=== PATIENT | male | born 1970 | race American Indian/Alaskan Native ===

== ENCOUNTER 2021-10-06 02:52 | Emergency (ER) | payer SELFPAY ==
[2021-10-06] MEDS ORDERED: SODIUM CHLORIDE 0.9% 1000 ML 1,000 ML IV ONE (04:38)
[2021-10-06 04:57] LABS: Basophils % (Auto) 0.7 % (0.0-1.8); Eosinophils # (Auto) 0.2 K/mm3 (0.0-0.4); Eosinophils % (Auto) 3.4 % (0.0-4.3); Hematocrit 44.6 % (35.5-45.6); Hemoglobin 14.6 gm/dl (11.8-15.2); Lymphocytes % (Auto) 16.2 % (13.4-35.0); Mean Corpuscular HGB Conc 33 % (32-34); Mean Corpuscular Volume 88 fl (84-94); Monocytes # (Auto) 0.6 K/mm3 (0.0-0.8); Platelet Count 245 K/mm3 (140-440); Red Blood Count 5.07 M/mm3 (3.65-5.03); Red Cell Distribution Width 13.4 % (13.2-15.2)
--- NOTE | 2021-10-06 05:11 | XRay Report ---
XR chest 1V ap INDICATION / CLINICAL INFORMATION: AMS. COMPARISON: None available. FINDINGS: SUPPORT DEVICES: None. HEART /PULMONARY VASCULATURE: No significant abnormality. LUNGS / PLEURA: No significant pulmonary or pleural abnormality. No pneumothorax. IMPRESSION: 1. No acute findings. Signer Name: Orlando Renee MD Signed: 10/06/2021 5:07 AM Workstation Name: [id number]
[2021-10-06 05:14] LABS: Alanine Aminotransferase 43 units/L (7-56); Albumin 4.4 g/dL (3.9-5); BUN/Creatinine Ratio 13; Blood Urea Nitrogen 16 mg/dL (9-20); Calcium 8.8 mg/dL (8.4-10.2); Hemolysis Index 7
[2021-10-06] MEDS ORDERED: ZIPRASIDONE MESYLATE 20 MG VIAL IM ONE ×2 (06:33→06:34)
[2021-10-06 07:00] LABS: Bilirubin,Urine NEG (Negative); Blood,Urine MOD (Negative); Color,Urine Straw (Yellow); Protein,Urine <15 mg/dL mg/dL (Negative); Urobilinogen,Urine < 2.0 mg/dL (<2.0)
[2021-10-06 07:07] LABS: Amphetamine Screen,Urine Negative; Benzodiazepines Screen,Urine Negative; Methadone Screen,Urine Negative; Opiate Screen,Urine Negative
[2021-10-06 07:20] LABS: Cannabinoid Screen,Urine Positive; Cocaine Screen,Urine Positive
--- NOTE | 2021-10-06 07:41 | Emergency Department Report ---
HPI - General Chief Complaint: Psych Time Seen by Provider: 10/06/21 04:18 - HPI HPI: 50-year-old male with no known history brought in by EMS with symptoms of acute psychosis saying that he has visual hallucinations of people trying to kill him after smoking and snorting cocaine earlier. Apparently has been awake for the past 9 days and knows that when he uses cocaine he hallucinates but did so anyways. He denied SI/HI to EMS. He apparently denied any chest pain or shortness of breath or other symptoms other than the hallucinations. This history was obtained from EMS. When I went to assess the patient, he was asleep and snoring in the bed. When I awakened him he arouses very briefly and then would immediately fall back asleep. This happened multiple times and I was never able to actually communicate with the patient as a result details of the HPI are limited due to the patient's current clinical condition. ED Past Medical Hx - Past Medical History Previous Medical History?: Yes Hx Hypertension: Yes - Surgical History Past Surgical History?: No - Social History Smoking Status: Current Every Day Smoker Substance Use Type: Cocaine - Medications Home Medications: Home Medications Medication Instructions Recorded Confirmed Last Taken Type No Known Home Medications [No 10/06/21 10/06/21 Unknown History Reported Home Medications] ED Review of Systems ROS: Stated complaint: HALLUCINATIONS Other details as noted in HPI Comment: Unobtainable due to pts medical conditions Physical Exam - Physical Exam Vital Signs: Vital Signs 10/06/21 10/06/21 10/06/21 02:55 04:37 05:00 Temperature 98.2 F Pulse Rate 94 H 74 Respiratory 18 22 19 Rate Blood Pressure 184/102 Blood Pressure 156/102 [Right] O2 Sat by Pulse 96 92 90 Oximetry Physical Exam: GENERAL: Male patient who appears older than stated age. Disheveled. Extremely somnolent and difficult to arouse. Patient arouses with very loud voice or sternal rub awakens and then falls back to sleep. HEAD: Normocephalic. No obvious signs of trauma. ENT: Moist mucous membranes. EYES: Pupils are equal round and reactive to light bilaterally NECK: Supple. Trachea is midline. LUNGS: Snoring respirations during sleep. Equal chest rise bilaterally. Clear to auscultation bilaterally. CARDIOVASCULAR: Regular rate and rhythm. No murmurs or rubs. VASCULAR: Cap refill < 2 seconds. 1+ pitting edema bilaterally. ABDOMEN: Abdomen is soft and nondistended. There is no significant tenderness, guarding or rebound. SKIN: Skin is warm and dry NEURO: Patient is extremely somnolent and arouses but then immediately falls back to sleep. For the brief period that he awakens each time he mumbles incoherently about people trying to maria luisa him. Unable to perform full neurologic exam at this time but patient is seen moving all 4 extremities volitionally. MUSCULOSKELETAL: No obvious deformities. ED Course Vital Signs 10/06/21 10/06/21 10/06/21 02:55 04:37 05:00 Temperature 98.2 F Pulse Rate 94 H 74 Respiratory 18 22 19 Rate Blood Pressure 184/102 Blood Pressure 156/102 [Right] O2 Sat by Pulse 96 92 90 Oximetry ED Medical Decision Making - Lab Data Result diagrams: 10/06/21 04:38 10/06/21 04:38 Labs 10/06/21 10/06/21 10/06/21 04:38 04:38 04:38 WBC 6.4 RBC 5.07 H Hgb 14.6 Hct 44.6 MCV 88 MCH 29 MCHC 33 RDW 13.4 Plt Count 245 Lymph % (Auto) 16.2 [place] % (Auto) 9.0 H Eos % (Auto) 3.4 Baso % (Auto) 0.7 Lymph # (Auto) 1.0 L [place] # (Auto) 0.6 Eos # (Auto) 0.2 Baso # (Auto) 0.0 Seg Neutrophils % 70.7 H Seg Neutrophils # 4.5 Sodium 140 Potassium 3.6 Chloride 100.3 Carbon Dioxide 26 Anion Gap 17 BUN 16 Creatinine 1.2 Estimated GFR > 60 BUN/Creatinine Ratio 13 Glucose 101 H Calcium 8.8 Total Bilirubin 0.70 AST 57 H ALT 43 Alkaline Phosphatase 48 Ammonia Troponin T NT-Pro-B Natriuret Pep Total Protein 7.5 Albumin 4.4 Albumin/Globulin Ratio 1.4 Urine Color Urine Turbidity Urine pH Ur Specific [place] Urine Protein Urine Glucose (UA) Urine Ketones Urine Blood Urine Nitrite Urine Bilirubin Urine Urobilinogen Ur Leukocyte Esterase Urine WBC (Auto) Urine RBC (Auto) Salicylates < 0.3 L Urine Opiates Screen Urine Methadone Screen Acetaminophen Ur Barbiturates Screen Ur Phencyclidine Scrn Ur Amphetamines Screen U Benzodiazepines Scrn Urine Cocaine Screen U Marijuana (THC) Screen Drugs of Abuse Note Plasma/Serum Alcohol 10/06/21 10/06/21 10/06/21 04:38 04:38 04:38 WBC RBC Hgb Hct MCV MCH MCHC RDW Plt Count Lymph % (Auto) [place] % (Auto) Eos % (Auto) Baso % (Auto) Lymph # (Auto) [place] # (Auto) Eos # (Auto) Baso # (Auto) Seg Neutrophils % Seg Neutrophils # Sodium Potassium Chloride Carbon Dioxide Anion Gap BUN Creatinine Estimated GFR BUN/Creatinine Ratio Glucose Calcium Total Bilirubin AST ALT Alkaline Phosphatase Ammonia Troponin T < 0.010 NT-Pro-B Natriuret Pep 68.18 Total Protein Albumin Albumin/Globulin Ratio Urine Color Urine Turbidity Urine pH Ur Specific [place] Urine Protein Urine Glucose (UA) Urine Ketones Urine Blood Urine Nitrite Urine Bilirubin Urine Urobilinogen Ur Leukocyte Esterase Urine WBC (Auto) Urine RBC (Auto) Salicylates Urine Opiates Screen Urine Methadone Screen Acetaminophen 5.0 L Ur Barbiturates Screen Ur Phencyclidine Scrn Ur Amphetamines Screen U Benzodiazepines Scrn Urine Cocaine Screen U Marijuana (THC) Screen Drugs of Abuse Note Plasma/Serum Alcohol < 0.01 10/06/21 10/06/21 10/06/21 04:59 06:44 06:44 WBC RBC Hgb Hct MCV MCH MCHC RDW Plt Count Lymph % (Auto) [place] % (Auto) Eos % (Auto) Baso % (Auto) Lymph # (Auto) [place] # (Auto) Eos # (Auto) Baso # (Auto) Seg Neutrophils % Seg Neutrophils # Sodium Potassium Chloride Carbon Dioxide Anion Gap BUN Creatinine Estimated GFR BUN/Creatinine Ratio Glucose Calcium Total Bilirubin AST ALT Alkaline Phosphatase Ammonia 36.0 Troponin T NT-Pro-B Natriuret Pep Total Protein Albumin Albumin/Globulin Ratio Urine Color Straw Urine Turbidity Clear Urine pH 6.0 Ur Specific [place] 1.009 Urine Protein <15 mg/dl Urine Glucose (UA) Neg Urine Ketones 20 Urine Blood Mod Urine Nitrite Neg Urine Bilirubin Neg Urine Urobilinogen < 2.0 Ur Leukocyte Esterase Neg Urine WBC (Auto) 1.0 Urine RBC (Auto) 1.0 Salicylates Urine Opiates Screen Negative Urine Methadone Screen Negative Acetaminophen Ur Barbiturates Screen Negative Ur Phencyclidine Scrn Negative Ur Amphetamines Screen Negative U Benzodiazepines Scrn Negative Urine Cocaine Screen Positive U Marijuana (THC) Screen Positive Drugs of Abuse Note Disclamer Plasma/Serum Alcohol - Radiology Data Radiology results: report reviewed - Medical Decision Making 50-year-old male who according to the EMS report reports staying up for the past 9 days and now reports visual hallucinations of people trying to kill him after using cocaine. He apparently denied SI/HI. He then was put in the hospital room where he fell asleep. When I assessed the patient he is extremely somnolent but arouses to very loud voice or sternal rub. He awakens very briefly mumbles about being chased and people trying to hurt him and then falls immediately back to sleep. This limits my ability to fully assess the patient. However, based on the history obtained by EMS which the patient admitted to staying up for the past 9 days and using cocaine, his sleepiness is consistent with that story. He is also mumbling about people trying to hurt him which is consistent with psychosis. Although the patient admits to using cocaine today, I am unable to determine whether the patient has been using cocaine and this is the reason why he has been staying up for the past 9 days or whether this is simply part of his cassidy/psychosis. For this reason I have signed a 1013 order and will send a full set of medical clearance labs. In addition given the reported cocaine use I have ordered an EKG and troponin as well as chest x-ray. Given the limited examination I have also ordered CT of the head to assess for evidence of intracranial bleeding versus mass versus edema versus other abnormality to explain the patient's presentation. Labs have resulted and reveal no significant leukocytosis or anemia. Creatinine is within normal range and there are no significant electrolyte abnormalities. Troponin and BNP are negative. Urinalysis is within normal limits. UDS is positive for cocaine and marijuana. Chest x-ray reveals no acute abnormalities At 6:35 AM, the patient suddenly awoke and became agitated, stumbling outside of his room into the hallway and holding his bag of IV fluids which is running into his arm. He is mumbling saying that he wants to leave. I immediately had security called and asked that the patient be given 20 mg of IM Geodon for chemical restraint. The patient was brought back to the mental health unit but I was told by the patient's nurse Shayla that security refused to assist with restraining the patient for Geodon to be given and therefore the medication was never given. Due to severe staffing shortage, EKG was never performed. I asked multiple times for the EKG and due to care being provided to other critical patients it was never done. CT of the head is still pending and will be followed up by the oncoming doctor, Dr. Ramos Critical care attestation.: If time is entered above; I have spent that time in minutes in the direct care of this critically ill patient, excluding procedure time. ED Disposition Clinical Impression: Psychosis, Cocaine use Disposition: HOME / SELF CARE / HOMELESS Condition: Stable Additional Instructions: Professional and Agency Contacts To help Resolve Crises (06/03) [place] Crisis Line: Suicide Prevention Line: Crisis Text Line: Text START to 850093 Emergency: 911 Outpatient COMMUNITY Behavioral Health Resources: DARIELA: [facility] [address] [place], [place] [address] [facility] [address] [place] [address] Monday thru Monday - 8am - 5pm Call to schedule an assessment for mental health and substance abuse programs [facility] Address: [address] [place] [address] Monday thru Monday- 7am-2pm an emergency, please contact the following numbers: [place] Crisis and Access Line: Number: Crisis Text Line: (Text START) Number: 569293 Suicide Prevention Line: Number: Emergency Number: 911 SUBSTANCE ABUSE PROGRAMS: Sober Living [facility]ique: Location: [place], [place] [facility] Address: [address] [place] [address] [facility] Recovery: Address: [address] [place] [address] [facility] Adult Rehabilitation: Address: [address] [place] [address] [facility] Community: Address: [address] [place] [address] [facility] Address: [address] , [place] [address]. [facility] Address: [address], [place] [address] Monday thru Monday: 8:30AM-5PM Referrals: PRIMARY CAREMD [Primary Care Provider] - 3-5 Days
--- NOTE | 2021-10-06 08:26 | Cat Scan Report ---
CT HEAD WITHOUT CONTRAST INDICATION / CLINICAL INFORMATION: Altered Mental Status / Substance abuse. TECHNIQUE: Axial imaging performed from the skull apex through the skull base without the use of cont rast. Sagittal and coronal reformatted images. All CT scans at this location are performed using CT dose reduction for ALARA by means of automated exposure control. COMPARISON: None available. FINDINGS: CEREBRAL PARENCHYMA: No significant abnormality. No acute territorial infarct. HEMORRHAGE: None. EXTRA-AXIAL SPACES: Normal in size and morphology for the patient's age. VENTRICULAR SYSTEM: Normal in size and morphology for the patient's age. MIDLINE SHIFT OR HERNIATION: None. CEREBELLUM / BRAINSTEM: No significant abnormality. CALVARIUM: No significant abnormality. ORBITS: Normal as visualized. PARANASAL SINUSES / MASTOID AIR CELLS: Normal as visualized. SOFT TISSUES of HEAD: No significant abnormality. ADDITIONAL FINDINGS: None. IMPRESSION: No acute intracranial abnormality. Cranial CT scan within normal limits. Signer Name: Noe Spencer Jr, MD Signed: 10/06/2021 8:22 AM Workstation Name: [id number]
--- NOTE | 2021-10-06 11:11 | Consultation ---
History of Present Illness - Reason for Consult Consult date: 10/06/21 Reason for consult: Psychosis - History of Present Psychiatric Illness ED Note:50-year-old male with no known history brought in by EMS with symptoms of acute psychosis saying that he has visual hallucinations of people trying to kill him after smoking and snorting cocaine earlier. Apparently has been awake for the past 9 days and knows that when he uses cocaine he hallucinates but did so anyways. He denied SI/HI to EMS. He apparently denied any chest pain or shortness of breath or other symptoms other than the hallucinations. This history was obtained from EMS. The patient was seen this morning. He is drowsy and unable to participate in assessment. Per nurse, patient recently received Geodon IM. for agitation PAST PSYCHIATRIC HISTORY: unable to obtain PAST MEDICAL HISTORY: None reported Family Psychiatric History None reported SOCIAL HISTORY Unable to obtain ROS: Unable to obtain MENTAL STATUS EXAMINATION Unable to obtain Assessment and Plan (1) Psychosis Treatment Plan 1013 Risks, benefits and alternatives of medications discussed with the patient, questions answered and consent obtained from patient. PSYCHOTHERAPY: Supportive psychotherapy provided MEDICAL: Per primary team DELIRIUM PRECAUTIONS: Please re-orient patient frequently, keep lights on during the day, and minimize benzodiazepines and opiates as these medications could worsen patient's confusion. ASSISTANT MANAGER OF OPERATIONS: per primary DISPOSITION: Recommend acute inpatient psychiatric hospitalization Will follow. Thank you for the consult. Please contact with any questions and/or concerns. Case staffed with Dr. Cao Medications and Allergies Allergies Allergy/AdvReac Type Severity Reaction Status Date / Time No Known Allergies Allergy Unverified 10/06/21 02:56 Home Medications Medication Instructions Recorded Confirmed Last Taken Type No Known Home Medications [No 10/06/21 10/06/21 Unknown History Reported Home Medications] Mental Status Exam - Vital signs Last Vital Signs Temp 98.2 F 10/06/21 02:55 Pulse 74 10/06/21 05:00 Resp 19 10/06/21 05:00 BP 184/102 10/06/21 05:00 Pulse Ox 99 10/06/21 08:29 Results Result Diagrams: 10/06/21 04:38 10/06/21 04:38 Abnormal lab results 10/06/21 10/06/21 10/06/21 Range/Units 04:38 04:38 04:38 RBC 5.07 H (3.65-5.03) M/mm3 [place] % (Auto) 9.0 H (0.0-7.3) % Lymph # (Auto) 1.0 L (1.2-5.4) K/mm3 Seg Neutrophils % 70.7 H (40.0-70.0) % Glucose 101 H (75-100) mg/dL AST 57 H (5-40) units/L Salicylates < 0.3 L (2.8-20.0) mg/dL Acetaminophen (10.0-30.0) ug/mL 10/06/21 Range/Units 04:38 RBC (3.65-5.03) M/mm3 [place] % (Auto) (0.0-7.3) % Lymph # (Auto) (1.2-5.4) K/mm3 Seg Neutrophils % (40.0-70.0) % Glucose (75-100) mg/dL AST (5-40) units/L Salicylates (2.8-20.0) mg/dL Acetaminophen 5.0 L (10.0-30.0) ug/mL All other labs normal.
--- NOTE | 2021-10-06 11:48 | Electrocardiograph Report ---
[facility] Test Date: 2021-10-06 Test Time: 04:45:51 Pat Name: AWILDA REDDING Department: Room: Gender: M Rn Cardiac Rehab: AIMEE Garcia : 1970 Requested By: IDALMIS GARCIA Order Number: [id number] Reading MD: Chinedu Lopez Measurements Intervals [place] Rate: 71 P: 64 SD: 128 QRS: 65 QRSD: 89 T: 36 QT: 401 QTc: 436 Interpretive Statements Sinus rhythm Atrial premature complex No previous ECG available for comparison Electronically Signed On 10-06-2021 10:52:19 EST by Chinedu Lopez
--- NOTE | 2021-10-06 13:01 | Emergency Department Report ---
Blank Doc - Documentation Documentation: 50-year-old male currently on 1013 awaiting. UDS positive for cocaine and mar ijuana. Patient was refuses Covid test
[2021-10-07 09:18] VITALS: BP 168/82
--- NOTE | 2021-10-07 10:37 | Consultation ---
History of Present Illness - Reason for Consult Consult date: 10/07/21 Reason for consult: Mental health evaluation - History of Present Psychiatric Illness The patient is a 50 year old male with history of cocaine abuse. The patient was seen this morning. He reports feeling better stating that his ready to go home. He denies any current suicidal thoughts and denies hallucinations. PAST PSYCHIATRIC HISTORY: unable to obtain PAST MEDICAL HISTORY: None reported Family Psychiatric History None reported SOCIAL HISTORY Unable to obtain ROS: Unable to obtain MENTAL STATUS EXAMINATION Unable to obtain Assessment and Plan (1) Psychosis Treatment Plan [id number] Risks, benefits and alternatives of medications discussed with the patient, questions answered and consent obtained from patient. PSYCHOTHERAPY: Supportive psychotherapy provided MEDICAL: Per primary team DELIRIUM PRECAUTIONS: Please re-orient patient frequently, keep lights on during the day, and minimize benzodiazepines and opiates as these medications could worsen patient's confusion. GRIZZLYMAN: per primary DISPOSITION:Do not recommend acute inpatient psychiatric hospitalization. [facility] will provide patient with psychiatric outpatient resources. Will will sign off. Please contact with any questions and/or concerns. Case staffed with Dr. Cao Medications and Allergies Medications and Allergies Allergies Allergy/AdvReac Type Severity Reaction Status Date / Time No Known Allergies Allergy Verified 10/07/21 09:26 Home Medications Medication Instructions Recorded Confirmed Last Taken Type No Known Home Medications [No 10/06/21 10/06/21 Unknown History Reported Home Medications] Mental Status Exam - Vital signs Last Vital Signs Temp 97.5 F L 10/07/21 09:17 Pulse 81 10/07/21 09:17 Resp 18 10/07/21 09:17 BP 168/82 10/07/21 09:17 Pulse Ox 97 10/07/21 09:17 Results Result Diagrams: 10/06/21 04:38 10/06/21 04:38 All other labs normal.
--- NOTE | 2021-10-07 11:18 | Event Note ---
Date: 10/07/21 Patient is 50 years old male admitted to the ER with suicidal ideation. Patient has been evaluated by our psychiatric team and recommended outpatient treatment. Patient denying any suicidal or homicidal ideation. No visual or auditory hallucination. Patient is medically and psychiatrically stable for discharge.
== END 2021-10-07 11:43 | disposition home or self-care (01) ==
LOC: ED 02:52
DX: F29 Unspecified psychosis not due to a substance or known physiological condition (principal); F14.20 Cocaine dependence, uncomplicated; Z79.899 Other long term (current) drug therapy
CPT/HCPCS: 36415; 70450; 71045; 80053; 80307; 81001; 82140; 83880; 84484; 85025; 93005; 93010; 96360; 96372; 99285; J3486; J7030; 80320; Q0162; G0480